=== PATIENT | male | born 1990 | race Caucasian/White ===

== ENCOUNTER 2023-11-28 18:43 | Emergency (ER) | payer MEDICAID ==
[~2023-11-28] VITALS: Ht 172.7 cm; Wt 158.8 kg
[2023-11-28 18:51] VITALS: BP_SYST 179; PULSE 88; RESP 18; TEMP 98.3; O2SAT 94
[2023-11-28] MEDS: ALBUTEROL SULFATE 0.083% 2.5 MG/3 ML VIAL.NEB INH ONE (19:27)
[2023-11-28] MEDS: predniSONE 20 MG TABLET PO ONE (19:29)
[2023-11-28] MEDS ORDERED: PRED20TA PO (22:09)
[2023-11-28] MEDS ORDERED: FLUT1DIS3 INH (22:09)
[2023-11-28] MEDS ORDERED: ALBMDI INH (22:09)
[2023-11-28 22:15] VITALS: BP_SYST 138; PULSE 101; RESP 20; TEMP 97.8; O2SAT 95
== END 2023-11-28 22:15 | disposition home or self-care (01) ==
LOC: SED 18:43
DX: J45.901 Unspecified asthma with (acute) exacerbation (principal); R06.02 Shortness of breath; R07.89 Other chest pain; Z79.899 Other long term (current) drug therapy
CPT/HCPCS: 99283; 93005; 82948; J7512; 94640; 94760